=== PATIENT | female | born 1975 | race African-American/Black ===

== ENCOUNTER 2016-04-14 21:13 | Emergency (ER) | payer MEDICAID ==
[~2016-04-14] VITALS: Ht 149.9 cm; Wt 73.0 kg
[~2016-04-14 21:13] MED LIST: NAPR250T57 PO
[2016-04-14 21:16] VITALS: BP 160/91; PULSE 98; RESP 16; TEMP 98.3; O2SAT 99
[2016-04-14 23:20] LABS: BLOOD, URINE TRACE (NEG); COMMENT (UR) CULTURE INDICATED; CULTURE IF INDICATED CULTURE INDICATED; GLUCOSE,URINE NEG (NEG); KETONE, URINE NEG (NEG); MUCUS URINE FEW /lpf (OCC); NITRITE,URINE NEG (NEG); SQUAMOUS EPITHELIAL CELL URINE <1 /hpf (0-5); URINE COLOR LIGHT-YELLOW (YELLW/STRAW)
[2016-04-14] MEDS ORDERED: BACT800T5 PO (23:58)
--- NOTE | 2016-04-14 23:59 | PD ---
HPI Chief Complaint: Complaint Time Seen by Provider: 22:20 Travel History International Travel<30 days: No Contact w/Intl Traveler<30days: No Traveled to known affect area: No History of Present Illness HPI 40-year-old female 2 para 2 last menstruation about 2 weeks prior arrives complaining of dysuria frequency. Duration of symptoms about one half days. Associated symptoms include generalized fatigue. Severity moderate. Onset gradual. No vaginal discharge or vaginal bleeding. PFSH Past Medical History Medical History: Denies Significant Hx Arthritis: No Asthma: No Heart Rhythm Problems: No Cancer: No Cardiovascular Problems: No High Cholesterol: No Chest Pain: No Congestive Heart Failure: No COPD: No Cerebrovascular Accident: No Diabetes: No Diminished Hearing: No GERD: No Genitourinary: No Headaches: No Hepatitis: No Hiatal Hernia: No Hypertension: No Kidney Stones: No Musculoskeletal: Yes Neurologic: No Reproductive: No Respiratory: No Migraines: No Myocardial Infarction: No Renal Failure: No Seizures: No Sleep Apnea: No Ulcer: No ?: Not : 3 Para: 2 Miscarriage: 1 Dilation and Curettage (D&C): Yes (2001) Tubal Ligation: Yes Past Surgical History Abdominal Surgery: No Appendectomy: No Cardiac Surgery: No Cholecystectomy: No Ear Surgery: No Endocrine Surgery: No Eye Surgery: No Genitourinary Surgery: No Gynecologic Surgery: Yes (DNC, TUBAL LIGATION) Oral Surgery: No Thoracic Surgery: No Other Surgery: Yes (D&C 2001) Social History Alcohol Use: No Tobacco Use: No Substance Use: No Allergies-Medications (Allergen,Severity, Reaction): Coded Allergies: No Known Allergies (Verified , 04/14/16) Reported Meds & Prescriptions Reported Meds & Active Scripts Active No Active Prescriptions or Reported Medications Review of Systems Except as stated in HPI: all other systems reviewed are Neg Physical Exam Narrative GENERAL: 40 F, WNWD, no acute distress pleasant SKIN: Warm and dry. HEAD: Atraumatic. Normocephalic. EYES: Pupils equal and round. No scleral icterus. No injection or drainage. ENT: No nasal bleeding or discharge. Mucous membranes pink and moist. NECK: Trachea midline. No JVD. CARDIOVASCULAR: Regular rate and rhythm. No murmur appreciated. RESPIRATORY: No accessory muscle use. Clear to auscultation. Breath sounds equal bilaterally. GASTROINTESTINAL: Abdomen soft, non-tender, nondistended. Hepatic and splenic margins not palpable. No flank tenderness. MUSCULOSKELETAL: No obvious deformities. No clubbing. No cyanosis. No edema. NEUROLOGICAL: Awake and alert. No obvious cranial nerve deficits. Motor grossly within normal limits. Normal speech. PSYCHIATRIC: Appropriate mood and affect; insight and judgment normal. Data Data Last Documented VS Vital Signs Date Time Temp Pulse Resp B/P Pulse Ox O2 Delivery O2 Flow Rate FiO2 04/14/16 21:16 98.3 98 16 160/91 99 Room Air Vital signs reviewed Orders Urinalysis - C+S If Indicated (04/14/16 23:02) Ed Urine Pregnancytest Poc (04/14/16 23:02) Urine Culture (04/14/16 23:00) Labs Laboratory Tests Test 04/14/16 23:00 Urine Color LIGHT-YELLOW Urine Turbidity CLEAR Urine pH 7.0 Urine Specific [place] 1.007 Urine Protein NEG mg/dL Urine Glucose (UA) NEG mg/dL Urine Ketones NEG mg/dL Urine Occult Blood TRACE Urine Nitrite NEG Urine Bilirubin NEG Urine Urobilinogen LESS THAN 2.0 MG/DL Urine Leukocyte Esterase LARGE Urine RBC 4 /hpf Urine WBC 21 /hpf Urine Squamous Epithelial <1 /hpf Cells Urine Mucus FEW /lpf Microscopic Urinalysis Comment CULTURE INDICATED MDM Medical Decision Making Medical Screen Exam Complete: Yes Emergency Medical Condition: Yes Medical Record Reviewed: Yes Differential Diagnosis Intrauterine , cystitis, STD Narrative Course Urinalysis reveals a UTI Point of care is negative. Return precautions discussed. Bactrim prescription. Patient ready for discharge. Diagnosis Primary Impression: Cystitis Referrals: Primary Care Physician 3 days Additional Instructions: You have a choice when it comes to health care, and we are glad that you chose [facility]. Hopefully, we have met your expectations on today's visit. You are welcome to return to [facility] at any time, as we are committed to meeting the health care needs of our community. Med/Other Pt SpecificInfo: Prescription(s) given Scripts Sulfamethoxazole-Trimethoprim (Bactrim DS)800-160 Mg Tab1 Tab PO BID 5 Days Ref 0 Prov:Beni Jo MD 04/14/16 Disposition: 01 DISCHARGE HOME Condition: Stable Beni Jo MD Apr 14, 2016 23:59
[2016-04-15] MEDS ORDERED: SULFAMETHOXAZOLE-TRIMETHOPRIM DS 800-160 MG TAB PO ONE
== END 2016-04-15 00:11 | disposition home or self-care (01) ==
LOC: NEPC 21:13
DX: N30.90 Cystitis, unspecified without hematuria (principal)
CPT/HCPCS: 81001; 84703; 87086; 99283

== ENCOUNTER 2016-05-27 10:25 | Emergency (ER) | payer MEDICAID ==
[~2016-05-27] VITALS: Ht 149.9 cm; Wt 72.5 kg
[2016-05-27 10:26] VITALS: BP 162/103; PULSE 101; RESP 14; TEMP 98.4; O2SAT 99
[2016-05-27 11:14] LABS: AUTOMATED NEUTROPHIL # 4.1 TH/MM3 (1.8-7.7); BASOPHIL % 0.3 % (0.0-2.0); EOSINOPHIL # 0.1 TH/MM3 (0-0.4); EOSINOPHIL % 1.6 % (0.0-4.0); HEMATOCRIT 33.3 % (35.0-46.0); LYMPH % 32.2 % (9.0-44.0); LYMPHOCYTE # 2.2 TH/MM3 (1.0-4.8); MEAN CELL VOLUME 72.8 FL (80.0-100.0); MEAN CORPUSCULAR HEMOGLOBIN 23.4 PG (27.0-34.0); MEAN CORPUSCULAR HGB CONC 32.2 % (32.0-36.0); MONO % 6.9 % (0.0-8.0); PLATELET COUNT 383 TH/MM3 (150-450); RED BLOOD COUNT 4.57 MIL/MM3 (4.00-5.30); RED CELL DISTRIBUTION WIDTH 17.8 % (11.6-17.2); WHITE BLOOD COUNT 6.9 TH/MM3 (4.0-11.0)
[2016-05-27 11:19] LABS: HEMO FLAGS AUTO DIFF
[2016-05-27 11:27] LABS: AMPHETAMINE, URINE NEG (NEG); BARBITURATES, URINE NEG (NEG); COCAINE, URINE NEG (NEG)
[2016-05-27 11:34] LABS: ALT (GPT) 18 U/L (10-53); ANION GAP 9 MEQ/L (5-15); AST (GOT) 31 U/L (15-37); BICARBONATE 23.2 MEQ/L (21.0-32.0); BLOOD UREA NITROGEN 11 MG/DL (7-18); CHLORIDE 108 MEQ/L (98-107); GLOMERULAR FILTRATION RATE 79 ML/MIN (>89); POTASSIUM 3.5 MEQ/L (3.5-5.1); SODIUM (NA) 140 MEQ/L (136-145)
[2016-05-27 11:35] LABS: ALKALINE PHOSPHATASE 91 U/L (45-117); TOTAL BILIRUBIN ADULT 0.4 MG/DL (0.2-1.0)
[2016-05-27 11:47] LABS: OVALOCYTES 1+ (NORMAL); SCAN/DIFF AUTO DIFF CONFIRMED
--- NOTE | 2016-05-27 11:58 | PD ---
HPI Chief Complaint: Psychiatric Symptoms Time Seen by Provider: 11:54 Travel History International Travel<30 days: No Contact w/Intl Traveler<30days: No Traveled to known affect area: No History of Present Illness HPI 40-year-old female that presents to the ED for evaluation of voluntary psych evaluation. Per patient she has a history of feeling depressed for a long time but she's never been seen by anybody for this. Per patient she's recently been having issues in the family as well as with her jobs that are causing her to be mother pressed causing her to cry all the time. The patient she has no suicidal or homicidal ideation but she feels that her depression is getting worse which is affecting her life. She's never take any medications. Per patient she does have some chronic back problems which per patient her doctor will not give him any pain medications for. Unclear as to why. She denies any drug abuse or alcohol abuse. She denies any recent injuries. She denies any homicidal or suicidal ideation. Per patient she feels more and a knot-like and more depressed. Her symptoms are moderate. She states that the symptoms have been worsening for the past couple of weeks. Nothing seems to make them better or worse. She denies any pain other than the back pain which is chronic that is 6 out of 10. She has no allergies to medication. No numbness, tingling, weakness. PFSH Past Medical History Arthritis: No Asthma: No Heart Rhythm Problems: No Cancer: No Cardiovascular Problems: No High Cholesterol: No Chest Pain: No Congestive Heart Failure: No COPD: No Cerebrovascular Accident: No Diabetes: No Diminished Hearing: No GERD: No Genitourinary: No Headaches: No Hepatitis: No Hiatal Hernia: No Hypertension: No Kidney Stones: No Musculoskeletal: Yes Neurologic: No Reproductive: No Respiratory: No Migraines: No Myocardial Infarction: No Renal Failure: No Seizures: No Sleep Apnea: No Ulcer: No ?: Not LMP: DEPO : 3 Para: 2 Miscarriage: 1 Dilation and Curettage (D&C): Yes (2001) Tubal Ligation: Yes Past Surgical History Abdominal Surgery: No Appendectomy: No Cardiac Surgery: No Cholecystectomy: No Ear Surgery: No Endocrine Surgery: No Eye Surgery: No Genitourinary Surgery: No Gynecologic Surgery: Yes (DNC, TUBAL LIGATION) Oral Surgery: No Thoracic Surgery: No Other Surgery: Yes (D&C 2001) Social History Alcohol Use: No Tobacco Use: No Substance Use: No Allergies-Medications (Allergen,Severity, Reaction): Coded Allergies: No Known Allergies (Verified , 05/27/16) Reported Meds & Prescriptions Reported Meds & Active Scripts Active No Active Prescriptions or Reported Medications Review of Systems General / Constitutional: No: Fever, Chills, Weight Gain, Weight Loss, Other Eyes: No: Diploplia, Blurred Vision, Photophobia, Drainage, Redness, Foreign Body Sensation, Pain, Tearing, Blind Spots, Visual changes, Blindness, Other HENT: No: Headaches, Vertigo, Lightheadedness, Sore Throat, Rhinitis, Rhinorrhea, Congestion, Nosebleed, Neck Stiffness, Neck Pain, Masses, Gingival Bleeding, Dental Difficulties, Ear Discharge, Earache, Other Cardiovascular: No: Chest Pain or Discomfort, Palpitations, Irregular Rhythm, Tachycardia, Diaphoresis, Syncope, Dyspnea on exertion, Varicosities, Edema, Cyanosis, Varicosities, Phlebitis, Claudication, Other Respiratory: No: Cough, Shortness of Breath, Wheezing, Sneezing, Orthopnea, Hemoptysis, Stridor, Night Sweats, Pleuritic Pain, Other Gastrointestinal: No: Nausea, Vomiting, Diarrhea, Abdominal Pain, Hematemesis, Hematochezia, Constipation, Changes in Bowel Habits, Indigestion, Dysphagia, Loss of Appetite, Other Genitourinary: No: Urgency, Frequency, Dysuria, Nocturia, Hematuria, Decreased Urinary Output, Oliguria, Hesitancy, Dribbling, Incontinence, Pelvic Pain, Flank Pain, Dyspareunia, Discharge, Dysmenorrhea, Menorrhagia, Metorrhagia, Vaginal Bleeding, Other Musculoskeletal: Positive: Pain, No: Myalgias, Arthralgias, Limited ROM, Weakness, Cramping, Edema, Atrophy, Other Skin: No Rash, No Itching, No Dryness, No Lumps, No Hives, No Change in Pigmentation, No Change in nails, No Alopecia, No Lesions, No Breast Lumps, No Breast Tenderness, No Breast Swelling, No Other Neurologic: No: Weakness, Dizziness, Syncope, Focal Abnormalities, Coordination Problem, Tremor, Ataxia, Headache, Change in Mentation, Slurred Speech, Paresthesia, Incontinence, Seizures, Sensory Disturbance, Other Psychiatric: Positive: Depression, No: Anxiety, Suicidal Ideations, Disorder of Thought, Mood Disorder, Substance Abuse, Homicidal Ideation, Other Endocrine: No: Heat Intolerance, Cold Intolerance, Polyuria, Polydipsia, Other Hematologic/Lymphatic: No: Easy Bruising, Lymph Node Enlargement, Other Physical Exam Narrative GENERAL: SKIN: Warm and dry. HEAD: Atraumatic. Normocephalic. EYES: Pupils equal and round. No scleral icterus. No injection or drainage. ENT: No nasal bleeding or discharge. Mucous membranes pink and moist. Tongue is midline. No uvula deviation. NECK: Trachea midline. No JVD. CARDIOVASCULAR: Regular rate and rhythm. No murmurs, S3, S4. RESPIRATORY: No accessory muscle use. Clear to auscultation. Breath sounds equal bilaterally. GASTROINTESTINAL: Abdomen soft, non-tender, nondistended. Hepatic and splenic margins not palpable. MUSCULOSKELETAL: Extremities without clubbing, cyanosis, or edema. No obvious deformities. Full range of motion of the upper and lower extremities bilaterally. 2+ pulses bilaterally. NEUROLOGICAL: Awake and alert. No obvious cranial nerve deficits. Motor grossly within normal limits. Five out of 5 muscle strength in the arms and legs. Normal speech. PSYCHIATRIC: Depressed mood and affect; insight and judgment normal. Data Data Last Documented VS Vital Signs Date Time Temp Pulse Resp B/P Pulse Ox O2 Delivery O2 Flow Rate FiO2 05/27/16 10:26 98.4 101 14 162/103 99 Room Air Orders Complete Blood Count With Diff (05/27/16 10:38) Comprehensive Metabolic Panel (05/27/16 10:38) Ed Urine Pregnancytest Poc (05/27/16 10:38) Psych Screen (05/27/16 10:38) Drug Screen, Random Urine (05/27/16 10:38) Diet Regular Basic (05/27/16 Lunch) Labs Laboratory Tests Test 05/27/16 10:48 White Blood Count 6.9 TH/MM3 Red Blood Count 4.57 MIL/MM3 Hemoglobin 10.7 GM/DL Hematocrit 33.3 % Mean Corpuscular Volume 72.8 FL Mean Corpuscular Hemoglobin 23.4 PG Mean Corpuscular Hemoglobin 32.2 % Concent Red Cell Distribution Width 17.8 % Platelet Count 383 TH/MM3 Mean Platelet Volume 7.6 FL Neutrophils (%) (Auto) 59.0 % Lymphocytes (%) (Auto) 32.2 % Monocytes (%) (Auto) 6.9 % Eosinophils (%) (Auto) 1.6 % Basophils (%) (Auto) 0.3 % Neutrophils # (Auto) 4.1 TH/MM3 Lymphocytes # (Auto) 2.2 TH/MM3 Monocytes # (Auto) 0.5 TH/MM3 Eosinophils # (Auto) 0.1 TH/MM3 Basophils # (Auto) 0.0 TH/MM3 CBC Comment AUTO DIFF Differential Comment AUTO DIFF CONFIRMED Ovalocytes 1+ Sodium Level 140 MEQ/L Potassium Level 3.5 MEQ/L Chloride Level 108 MEQ/L Carbon Dioxide Level 23.2 MEQ/L Anion Gap 9 MEQ/L Blood Urea Nitrogen 11 MG/DL Creatinine 0.95 MG/DL Estimat Glomerular Filtration 79 ML/MIN Rate Random Glucose 85 MG/DL Calcium Level 8.8 MG/DL Total Bilirubin 0.4 MG/DL Aspartate Amino Transf 31 U/L (AST/SGOT) Alanine Aminotransferase 18 U/L (ALT/SGPT) Alkaline Phosphatase 91 U/L Total Protein 9.1 GM/DL Albumin 3.7 GM/DL Urine Opiates Screen NEG Urine Barbiturates Screen NEG Urine Amphetamines Screen NEG Urine Benzodiazepines Screen NEG Urine Cocaine Screen NEG Urine Cannabinoids Screen NEG MDM Medical Decision Making Medical Screen Exam Complete: Yes Emergency Medical Condition: Yes Medical Record Reviewed: Yes Interpretation(s) CBC & BMP Diagram 05/27/16 10:48 Tox screen negative Differential Diagnosis Depression versus suicidal ideation versus anxiety versus adjustment disorder versus mood disorder versus bipolar disorder versus schizophrenia versus paranoid disorder versus psychosis versus substance abuse versus alcohol abuse versus alcohol induced psychosis versus homicidality addition versus cutting versus personality disorder Narrative Course 40-year-old female that presents to the ED for evaluation of psych. Patient was properly examined and was found to have signs and symptoms consistent with appears to be depression. Likely exacerbated by recent family stressors as well as job stressors. Labs will be drawn. Patient will be medically cleared. Okay to be seen by psych. Mental health screening was discussed with the patient. Diagnosis Primary Impression: Depression Qualified Code: F33.1 - Moderate episode of recurrent major depressive disorder Scripts No Active Prescriptions or Reported Meds Jorge Bradley May 27, 2016 11:57
--- NOTE | 2016-05-27 15:22 | PD ---
History of Present Illness Chief Complaint: Psychiatric Symptoms Time Seen by Provider: 14:30 Travel History International Travel<30 Days: No Contact w/Intl Traveler<30days: No Known affected area: No Legal Status Legal Status: Voluntary History of Present Illness: History of Present Illness HPI 40-year-old female with no previous psychiatric history that presents to the ED on a voluntary basis for evaluation. She reports that over the past weekend she has experienced increase in worry well as sadness over multiple stressors including having lost her job in January, multiple financial stressors and her 17 year old daughter acting out. Her daughter was BA this morning and is currently at [facility]. As per EMR review there have been no previous contact with [facility] [place]. Denies any substance use and negative toxicology. Patient is seen in J pod. Awake, alert and oriented. Speech is clear and logical. Affect is tearful at times. There is no evidence of any thought process or content disturbance. Mood is mildly depressed. There is no prakash. She denies any suicidal or homicidal ideation, intent or plan. She is worried over multiple social issues but she is not depressed. She is currently applying for jobs and is able to complete her daily tasks. [facility] Past Medical History Arthritis: No Asthma: No Heart Rhythm Problems: No Cancer: No Cardiovascular Problems: No High Cholesterol: No Chest Pain: No Congestive Heart Failure: No COPD: No Cerebrovascular Accident: No Diabetes: No Patient Takes Glucophage: No Diminished Hearing: No GERD: No Genitourinary: No Headaches: No Hepatitis: No Hiatal Hernia: No Hypertension: No Kidney Stones: No Musculoskeletal: Yes Neurologic: No Reproductive: No Respiratory: No Migraines: No Myocardial Infarction: No Renal Failure: No Seizures: No Sleep Apnea: No Ulcer: No ?: Not LMP: DEPO : 3 Para: 2 Miscarriage: 1 Dilation and Curettage (D&C): Yes (2001) Tubal Ligation: Yes Past Surgical History Abdominal Surgery: No Appendectomy: No Cardiac Surgery: No Cholecystectomy: No Ear Surgery: No Endocrine Surgery: No Eye Surgery: No Genitourinary Surgery: No Gynecologic Surgery: Yes (DNC, TUBAL LIGATION) Oral Surgery: No Thoracic Surgery: No Other Surgery: Yes (D&C 2001) Psychiatric History Psychiatric History Hx Psychiatric Treatment: None reported History of Inpatient Treatment: No Guns or firearms in home: No Social History Single female born and raised in [place]. Lives with her 17 year old daughter and her 11 year old son. Works as a CFO. Currently unemployed. Her aunt is supportive. Hx Alcohol Use: No (Pt denies.) Hx Tobacco Use: No (Pt denies.) Hx Substance Use: No (Pt denies.) Hx of Substance Use Treatment: No Family Psychiatric History Negative Allergies-Medications (Allergen,Severity, Reaction): Coded Allergies: No Known Allergies (Verified , 05/27/16) Reported Meds & Prescriptions Reported Meds & Active Scripts Active No Active Prescriptions or Reported Medications Review of Systems Except as stated in HPI: all other systems reviewed are Neg Psychiatric: COMPLAINS OF: Depression Exam Alert: Yes Wren: Person (ox4) Mood: Depressed (mild) Affect: Other (congruent to mood and variable) Speech: Clear, Logical Eye Contact: Normal Memory Intact: Comment (No impairnment) Hallucinations: Other (negative) Suicidal: Ideation (deneis any) Homicidal: Ideation (deneis any) Insight/Judgement Fair. Not impaired MDM Medical Decision Making Medical Record Reviewed: Yes Assessment/Plan 40 year old female with no previous psychiatric history who presents under a voluntary basis. She is reporting increase in social and financial stressors. This morning her 17 year old daughter was BA to [facility]. Her daughter has been acting out. Patient feels overwhelmed with current stressors but is utilizing family support to help her. She is actively seeking employment and feels that once she is working again she will feel better. There is no suicidal or homicidal ideation and she does not meet criteria for inpatient psychiatric treatment or involuntary commitment. She is requesting discharge as she has to care for her 11 year old son. She is provided support and psychoeducation. Patient will be discharged. Staff to provide her with community resources. Orders Complete Blood Count With Diff (05/27/16 10:38) Comprehensive Metabolic Panel (05/27/16 10:38) Ed Urine Pregnancytest Poc (05/27/16 10:38) Psych Screen (05/27/16 10:38) Drug Screen, Random Urine (05/27/16 10:38) Diet Regular Basic (05/27/16 Lunch) Results Vital Signs Date Time Temp Pulse Resp B/P Pulse Ox O2 Delivery O2 Flow Rate FiO2 05/27/16 10:26 98.4 101 14 162/103 99 Room Air Laboratory Tests Test 05/27/16 10:48 White Blood Count 6.9 Red Blood Count 4.57 Hemoglobin 10.7 Hematocrit 33.3 Mean Corpuscular Volume 72.8 Mean Corpuscular Hemoglobin 23.4 Mean Corpuscular Hemoglobin 32.2 Concent Red Cell Distribution Width 17.8 Platelet Count 383 Mean Platelet Volume 7.6 Neutrophils (%) (Auto) 59.0 Lymphocytes (%) (Auto) 32.2 Monocytes (%) (Auto) 6.9 Eosinophils (%) (Auto) 1.6 Basophils (%) (Auto) 0.3 Neutrophils # (Auto) 4.1 Lymphocytes # (Auto) 2.2 Monocytes # (Auto) 0.5 Eosinophils # (Auto) 0.1 Basophils # (Auto) 0.0 CBC Comment AUTO DIFF Differential Comment AUTO DIFF CONFIRMED Ovalocytes 1+ Sodium Level 140 Potassium Level 3.5 Chloride Level 108 Carbon Dioxide Level 23.2 Anion Gap 9 Blood Urea Nitrogen 11 Creatinine 0.95 Estimat Glomerular Filtration 79 Rate Random Glucose 85 Calcium Level 8.8 Total Bilirubin 0.4 Aspartate Amino Transf 31 (AST/SGOT) Alanine Aminotransferase 18 (ALT/SGPT) Alkaline Phosphatase 91 Total Protein 9.1 Albumin 3.7 Urine Opiates Screen NEG Urine Barbiturates Screen NEG Urine Amphetamines Screen NEG Urine Benzodiazepines Screen NEG Urine Cocaine Screen NEG Urine Cannabinoids Screen NEG Diagnosis Primary Impression: Adjustment disorder Additional Impression: adjustment disorder Psychiatrically Cleared: Yes Med/ Other Pt Specific Info: No Meds Exist/No RX given Prescriptions No Active Prescriptions or Reported Meds Disposition: DISCHARGE HOME Condition: Stable Problem Qualifiers Primary Impression: Adjustment disorder Qualified Code: F43.21 - Adjustment disorder with depressed mood Katiana Devine May 27, 2016 15:22
== END 2016-05-27 15:57 | disposition home or self-care (01) ==
LOC: NEPJ 10:25
DX: F32.9 Major depressive disorder, single episode, unspecified (principal)
CPT/HCPCS: 80053; 80307; 84703; 85025; 99283

== ENCOUNTER 2017-07-04 17:17 | Emergency (ER) | payer MEDICAID ==
[~2017-07-04] VITALS: Ht 149.9 cm; Wt 75.0 kg
[2017-07-04 17:25] VITALS: BP 153/85; PULSE 95; RESP 18; TEMP 98.5; O2SAT 100
--- NOTE | 2017-07-04 21:28 | PD ---
HPI Chief Complaint: Pain: Acute or Chronic Time Seen by Provider: 21:12 Travel History International Travel<30 days: No Contact w/Intl Traveler<30days: No Traveled to known affect area: No History of Present Illness HPI patient states she woke up with this pain today, and it got worse over the day, pain is localized to right groin area, sharp, 9/10, nonradiating. patinet denies any alleviating factors, worsened by moving/walking/activity....patient denies assoc fever/rash/yancey/neck pain/cp/back pain/abd pain/ runny nose/cough/ sore thorat or vaginal discharge all: denies denies pmh/pshx except tubal ligation and a d&c PFSH Past Medical History Arthritis: No Asthma: No Heart Rhythm Problems: No Cancer: No Cardiovascular Problems: No High Cholesterol: No Chest Pain: No Congestive Heart Failure: No COPD: No Cerebrovascular Accident: No Diabetes: No Diminished Hearing: No GERD: No Genitourinary: No Headaches: No Hepatitis: No Hiatal Hernia: No Hypertension: No Kidney Stones: No Musculoskeletal: Yes Neurologic: No Reproductive: No Respiratory: No Migraines: No Myocardial Infarction: No Renal Failure: No Seizures: No Sleep Apnea: No Ulcer: No ?: Not LMP: 06/27/17 : 3 Para: 2 Miscarriage: 1 Dilation and Curettage (D&C): Yes (2001) Tubal Ligation: Yes Past Surgical History Abdominal Surgery: No Appendectomy: No Cardiac Surgery: No Cholecystectomy: No Ear Surgery: No Endocrine Surgery: No Eye Surgery: No Genitourinary Surgery: No Gynecologic Surgery: Yes ([facility], TUBAL LIGATION) Oral Surgery: No Thoracic Surgery: No Other Surgery: Yes (D&C 2001) Social History Alcohol Use: No (Pt denies.) Tobacco Use: No (Pt denies.) Substance Use: No (Pt denies.) Allergies-Medications (Allergen,Severity, Reaction): Coded Allergies: No Known Allergies (Verified Adverse Reaction, Unknown, 07/04/17) Reported Meds & Prescriptions Reported Meds & Active Scripts Active Ultram (Tramadol HCl) 50 Mg Tab 50 Mg PO Q8H PRN Bactrim DS (Sulfamethoxazole-Trimethoprim) 800-160 Mg Tab 1 Tab PO BID Review of Systems Except as stated in HPI: all other systems reviewed are Neg General / Constitutional: No: Fever Eyes: No: Visual changes HENT: No: Headaches Cardiovascular: No: Chest Pain or Discomfort Respiratory: No: Shortness of Breath Gastrointestinal: No: Abdominal Pain Genitourinary: Positive: Other (groin pain) Musculoskeletal: No: Pain Skin: No Rash Neurologic: No: Weakness Psychiatric: No: Depression Endocrine: No: Polydipsia Hematologic/Lymphatic: No: Easy Bruising Physical Exam Narrative GENERAL: SKIN: Warm and dry. HEAD: Atraumatic. Normocephalic. EYES: Pupils equal and round. No scleral icterus. No injection or drainage. ENT: No nasal bleeding or discharge. Mucous membranes pink and moist. NECK: Trachea midline. No JVD. CARDIOVASCULAR: Regular rate and rhythm. RESPIRATORY: No accessory muscle use. Clear to auscultation. Breath sounds equal bilaterally. GASTROINTESTINAL: Abdomen soft, non-tender, nondistended. right inguinal region has a tender lymphadenopathy MUSCULOSKELETAL: Extremities without clubbing, cyanosis, or edema. No obvious deformities. NEUROLOGICAL: Awake and alert. No obvious cranial nerve deficits. Motor grossly within normal limits. Five out of 5 muscle strength in the arms and legs. Normal speech. PSYCHIATRIC: Appropriate mood and affect; insight and judgment normal. Data Data Last Documented VS Orders Orders Complete Blood Count With Diff (07/04/17 21:22) Comprehensive Metabolic Panel (07/04/17 21:22) Lipase (07/04/17 21:22) Urinalysis - C+S If Indicated (07/04/17 21:22) Iv Access Insert/Monitor (07/04/17 21:22) Ecg Monitoring (07/04/17 21:22) Oximetry (07/04/17 21:22) NPO (07/04/17 21:22) Morphine Inj (Morphine Inj) (07/04/17 21:30) Ondansetron Inj (Zofran Inj) (07/04/17 21:30) Sodium Chloride 0.9% Flush (Ns Flush) (07/04/17 21:30) Ketorolac Inj (Toradol Inj) (07/04/17 21:30) Ed Urine Pregnancytest Poc (07/04/17 21:22) Us Leg Venous Doppler (07/04/17 21:22) Urine Culture (07/04/17 22:15) Ed Discharge Order (07/04/17 23:48) Labs Laboratory Tests Test 07/04/17 22:15 White Blood Count 10.3 TH/MM3 Red Blood Count 4.38 MIL/MM3 Hemoglobin 9.8 GM/DL Hematocrit 30.8 % Mean Corpuscular Volume 70.4 FL Mean Corpuscular Hemoglobin 22.3 PG Mean Corpuscular Hemoglobin Concent 31.7 % Red Cell Distribution Width 17.6 % Platelet Count 461 TH/MM3 Mean Platelet Volume 7.4 FL CBC Comment AUTO DIFF Differential Total Cells Counted 100 Neutrophils % (Manual) 72 % Band Neutrophils % 1 % Lymphocytes % 22 % Monocytes % 4 % Eosinophils % 1 % Neutrophils # (Manual) 7.5 TH/MM3 Differential Comment FINAL DIFF MANUAL Platelet Estimate NORMAL Platelet Morphology Comment NORMAL Ovalocytes 1+ Acanthocytes OCC Urine Color YELLOW Urine Turbidity CLEAR Urine pH 7.5 Urine Specific [place] 1.025 Urine Protein 30 mg/dL Urine Glucose (UA) NEG mg/dL Urine Ketones NEG mg/dL Urine Occult Blood TRACE Urine Nitrite NEG Urine Bilirubin NEG Urine Urobilinogen 2.0 MG/DL Urine Leukocyte Esterase LARGE Urine RBC 11 /hpf Urine WBC 12 /hpf Urine Squamous Epithelial Cells 7 /hpf Urine Bacteria RARE /hpf Urine Mucus FEW /lpf Microscopic Urinalysis Comment CULTURE INDICATED Blood Urea Nitrogen 10 MG/DL Creatinine 0.87 MG/DL Random Glucose 100 MG/DL Total Protein 8.9 GM/DL Albumin 3.3 GM/DL Calcium Level 8.6 MG/DL Alkaline Phosphatase 99 U/L Aspartate Amino Transf (AST/SGOT) 33 U/L Alanine Aminotransferase (ALT/SGPT) 18 U/L Total Bilirubin 0.2 MG/DL Sodium Level 139 MEQ/L Potassium Level 3.3 MEQ/L Chloride Level 105 MEQ/L Carbon Dioxide Level 26.7 MEQ/L Anion Gap 7 MEQ/L Estimat Glomerular Filtration Rate 87 ML/MIN Lipase 153 U/L [facility] Medical Decision Making Medical Screen Exam Complete: Yes Emergency Medical Condition: Yes Medical Record Reviewed: Yes Differential Diagnosis lymphadenitis v uti v vaginitis v dvt Narrative Course ultrs neg for dvt, ua c/w uti, patient will be empirically treated for bacterial infetion with lymphadenitis Diagnosis Primary Impression: UTI Additional Impression: Lymphadenitis Patient Instructions: General Instructions, Lymphadenopathy (GEN), Urinary Tract Infection in Women (DC) Scripts Tramadol (Ultram) 50 Mg Tab 50 MG PO Q8H Y for PAIN, #15 TAB 0 Refills Prov: Rell Maxwell MD 07/04/17 Sulfamethoxazole-Trimethoprim (Bactrim DS) 800-160 Mg Tab 1 TAB PO BID for Infection, #20 TAB 0 Refills Prov: Rell Maxwell MD 07/04/17 Disposition: 01 DISCHARGE HOME Condition: Stable Rell Maxwell MD Jul 04, 2017 21:28
[2017-07-04] MEDS ORDERED: ONDANSETRON HCL 4 MG/2 ML VIAL IVP ONE (21:30)
[2017-07-04] MEDS ORDERED: MORPHINE SULFATE 4 MG/ML INJ IV PUSH ONE (21:30)
[2017-07-04] MEDS ORDERED: SODIUM CHLORIDE 0.9% FLUSH 10 ML FLUSH IV FLUSH PRN (21:30)
[2017-07-04] MEDS ORDERED: KETOROLAC TROMETHAMINE 30 MG/ML (IVP) VIAL IVP ONE (21:30)
[2017-07-04 22:28] LABS: HEMATOCRIT 30.8 % (35.0-46.0); HEMOGLOBIN 9.8 GM/DL (11.6-15.3); MEAN CELL VOLUME 70.4 FL (80.0-100.0); MEAN CORPUSCULAR HEMOGLOBIN 22.3 PG (27.0-34.0); MEAN CORPUSCULAR HGB CONC 31.7 % (32.0-36.0); MEAN PLATELET VOLUME 7.4 FL (7.0-11.0); PLATELET COUNT 461 TH/MM3 (150-450); RED BLOOD COUNT 4.38 MIL/MM3 (4.00-5.30); RED CELL DISTRIBUTION WIDTH 17.6 % (11.6-17.2); WHITE BLOOD COUNT 10.3 TH/MM3 (4.0-11.0)
--- NOTE | 2017-07-04 22:30 | RADRPT ---
EXAM DATE/TIME: 07/04/2017 21:49 [place] COMPARISON: No previous studies available for comparison. INDICATIONS : Right leg swelling. MEDICAL HISTORY : Neck pain. SURGICAL HISTORY : Tubal ligation. Dilation and curettage. ENCOUNTER: Initial ACUITY: 1 day PAIN SCORE: 2/10 LOCATION: Right leg. TECHNIQUE: Venous ultrasound of the leg was performed from the inguinal ligament to the proximal calf. Real-afia e, color Doppler and spectral tracing, compression and augmentation techniques were used. FINDINGS: There is normal compressibility of the deep venous system from the inguinal region to the proximal ca lf. No echogenic clot is seen in the lumen of the common femoral, femoral, popliteal, and posterior tibial veins. There is a normal response of the venous system to proximal and distal augmentation an d respiration. CONCLUSION: Normal examination. Dawson Mix MD on July 04, 2017 at 22:27 Board Certified Radiologist. This report was verified electronically.
[2017-07-04 22:39] LABS: ALBUMIN 3.3 GM/DL (3.4-5.0); ALT (GPT) 18 U/L (10-53); AST (GOT) 33 U/L (15-37); BICARBONATE 26.7 MEQ/L (21.0-32.0); BLOOD UREA NITROGEN 10 MG/DL (7-18); CALCIUM 8.6 MG/DL (8.5-10.1); CHLORIDE 105 MEQ/L (98-107); CREATININE 0.87 MG/DL (0.50-1.00); GLOMERULAR FILTRATION RATE 87 ML/MIN (>89); GLUCOSE,RANDOM 100 MG/DL (74-106); SODIUM (NA) 139 MEQ/L (136-145)
[2017-07-04 22:40] LABS: ALKALINE PHOSPHATASE 99 U/L (45-117); TOTAL BILIRUBIN ADULT 0.2 MG/DL (0.2-1.0); TOTAL PROTEIN 8.9 GM/DL (6.4-8.2)
[2017-07-04 22:53] LABS: BACTERIA, URINE RARE /hpf; BILIRUBIN, URINE NEG (NEG); BLOOD, URINE TRACE (NEG); GLUCOSE,URINE NEG (NEG); KETONE, URINE NEG (NEG); MUCUS URINE FEW /lpf (OCC); NITRITE,URINE NEG (NEG); PH, URINE 7.5 (5.0-8.5); SQUAMOUS EPITHELIAL CELL URINE 7 /hpf (0-5); URINE COLOR YELLOW (YELLW/STRAW); URINE LEUKOCYTE ESTERASE LARGE (NEG)
[2017-07-04 23:37] LABS: BANDS 1 % (0-6); LYMPHOCYTES 22 % (9-44); MONOCYTES 4 % (0-8); NEUTROPHIL # MANUAL DIFF 7.5 TH/MM3 (1.8-7.7); POLYS (SEG NEUTROPHILS) 72 % (16-70)
[2017-07-04 23:39] LABS: ACANTHOCYTES OCC (NORMAL); OVALOCYTES 1+ (NORMAL)
[2017-07-04] MEDS ORDERED: BACT800T5 PO (23:47)
[2017-07-04] MEDS ORDERED: TRAM50 PO (23:47)
== END 2017-07-05 00:49 | disposition home or self-care (01) ==
LOC: NEPD 17:17
DX: N39.0 Urinary tract infection, site not specified (principal); I88.9 Nonspecific lymphadenitis, unspecified
CPT/HCPCS: 80053; 81001; 83690; 85007; 85027; 87086; 93971; 96374; 96375; 99284; J1885; J2270; J2405